=== PATIENT | female | born 1985 | race African-American/Black ===

== ENCOUNTER 2017-06-26 13:10 | Emergency (ER) | payer OTHER ==
[~2017-06-26 13:10] MED LIST: AZIT250T6 PO; DIPH1POW PO; DM/P295L2 PO; HYDR-971 PO; ONDA4TAB10 SL; TRAM50TA PO
[2017-06-26 13:13] VITALS: BP 123/72
== END 2017-06-26 13:25 | disposition left against medical advice (07) ==
LOC: ER 13:10
DX: O26.893 Other specified pregnancy related conditions, third trimester (principal); R10.30 Lower abdominal pain, unspecified; Z3A.34 34 weeks gestation of pregnancy; Z53.21 Procedure and treatment not carried out due to patient leaving prior to being seen by health care provider

== ENCOUNTER 2020-01-24 18:14 | Emergency (ER) | payer OTHER ==
[~2020-01-24] VITALS: Ht 165.1 cm; Wt 110.3 kg
[~2020-01-24 18:14] MED LIST changes: +HYDR-3165 PO; -HYDR-971 PO
[2020-01-24 18:31] VITALS: BP 165/95
--- NOTE | 2020-01-24 19:05 | PHYS DOC ---
Past History Past Medical History: No Pertinent History Past Surgical History: Cholecystectomy, , Tubal ligation Smoking: Cigarettes Alcohol Use: Occasionally Drug Use: None Adult General Chief Complaint Chief Complaint: ABDOMINAL PAIN HPI HPI Patient is a 34-year-old female patient presenting to the ED today with mild intermittent left upper quadrant abdominal pain radiating to her flank region, symptoms began 3 days ago. Patient denies any fever. Denies any urgency, frequency or dysuria. Denies any chance she is . She states her tubes are tied. Denies anything specifically exacerbating or relieving her pain. Review of Systems Review of Systems Constitutional: Denies fever or chills [] Eyes: Denies change in visual acuity, redness, or eye pain [] HENT: Denies nasal congestion or sore throat [] Respiratory: Denies cough or shortness of breath [] Cardiovascular: No additional information not addressed in HPI [] GI: Reports left upper quadrant abdominal pain, denies nausea, vomiting, bloody stools or diarrhea [] : Denies dysuria or hematuria [] Musculoskeletal: Denies back pain or joint pain [] Integument: Denies rash or skin lesions [] Neurologic: Denies headache, focal weakness or sensory changes [] All other systems were reviewed and found to be within normal limits, except as documented in this note. Allergies Allergies Allergies Coded Allergies Type Severity Reaction Last Updated Verified No Known Drug Allergies 08/07/13 No Physical Exam Physical Exam Constitutional: Well developed, well nourished, no acute distress, non-toxic appearance. [] HENT: Normocephalic, atraumatic, bilateral external ears normal, oropharynx moist, no oral exudates, nose normal. [] Eyes: PERRLA, EOMI, conjunctiva normal, no discharge. [] Neck: Normal range of motion, no tenderness, supple, no stridor. [] Cardiovascular:Heart rate regular rhythm, no murmur [] Lungs & Thorax: Bilateral breath sounds clear to auscultation [] Abdomen: Bowel sounds normal, soft, slight LUQ tenderness no RUQ or LLQ tenderness, no masses, no pulsatile masses. [] Skin: Warm, dry, no erythema, no rash. [] Back: No tenderness, no CVA tenderness. [] Extremities: No tenderness, no cyanosis, no clubbing, ROM intact, no edema. [] Neurologic: Alert and oriented X 3, normal motor function, normal sensory function, no focal deficits noted. [] Psychologic: Affect normal, judgement normal, mood normal. [] Current Patient Data Vital Signs Vital Signs Date Time Temp Pulse Resp B/P (MAP) Pulse Ox O2 Delivery O2 Flow Rate FiO2 01/24/20 18:31 97.8 98 16 165/95 (118) 100 Room Air EKG EKG [] Radiology/Procedures Radiology/Procedures []PROCEDURE: CT ABDOMEN PELVIS WO CONTRAST CT scan of the abdomen and pelvis with contrast 01/24/2020 CLINICAL HISTORY: Left flank pain. TECHNIQUE: Unenhanced, contiguous, 3 mm axial sections were obtained through the abdomen and pelvis. One or more of the following individualized dose reduction techniques were utilized for this study: 1. Automated exposure control. 2. Adjustment of the mA and/or kV according to patient size. 3. Use of iterative reconstruction technique. FINDINGS: Comparison study is dated 01/15/2015. Images through the lung bases demonstrate minimal dependent subsegmental atelectasis bilaterally. The liver, spleen, pancreas, adrenal glands and left kidney are within normal limits. 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 No focal abnormality of the right kidney is seen. The abdominal aorta tapers normally. Surgical clips are seen within the gallbladder fossa consistent with a cholecystectomy. No free fluid or free air is . The appendix is well-visualized and is within normal limits. There is no evidence of bowel obstruction. Scattered diverticula are seen involving the colon. Diffuse wall thickening of the proximal descending colon is seen. Increased density is seen within the adjacent fat. These findings are consistent with diverticulitis. No abnormal fluid collection is seen to suggest evidence of an abscess. Images through the pelvis demonstrate the urinary bladder to be contracted. No free fluid is seen. Minimal S-shaped curvature of the thoracolumbar spine is noted. IMPRESSION: Findings are seen consistent with diverticulitis involving the proximal descending colon. No abscess is seen. Electronically signed by: Arpit Viera MD (01/24/2020 7:37 PM) [id number] DICTATED AND SIGNED BY: ARPIT VIERA MD DATE: 01/24/20 1937 CC: DAIANA BERRIOS APRN; PCP,UNKNOWN ~ Heart Score Risk Factors: Risk Factors: DM, Current or recent (<one month) smoker, HTN, HLP, family histo ry of CAD, obesity. Risk Scores: Risk Factors: DM, Current or recent (<one month) smoker, HTN, HLP, family history of CAD, obesity. Course & Med Decision Making Course & Med Decision Making Pertinent Labs and Imaging studies reviewed. (See chart for details) This is a 34-year-old female patient presenting to the ED today with left upper quadrant abdominal pain radiating to her flank region on the left side. Patient is afebrile, CBC with a WBC of 12.0, CMP with no acute findings, UA negative for any acute findings. CT of the abdomen and pelvic was noted for diverticulitis. Patient was advised admission, she declined. Was discharged on Flagyl and Cipro. Follow-up with GI or PCP. Provided return precautions. Dragon Disclaimer Dragon Disclaimer This electronic medical record was generated, in whole or in part, using a voice recognition dictation system. Departure Departure: Impression: Primary Impression: Diverticulitis Disposition: [place] HOME SELF CARE/HOMELESS Condition: STABLE Referrals: PCP,UNKNOWN (PCP) ELIANA TAYLOR MD follow up in 1-2 weeks Patient Instructions: Diverticulitis, [id number] Additional Instructions: You were evaluated today and noted to have diverticulitis. Take the prescribed antibiotics until completed. Follow-up with the provided produce weigher or your own primary care doctor in 1 week. Come back to the ED at any point symptoms worsen Scripts Hydrocodone Bit/Acetaminophen (HYDROCODONE-APAP 5-325 ) 1 Each Tablet 1 TAB PO PRN Q6HRS PRN for PAIN, #12 TAB 0 Refills Prov: DAIANA BERRIOS APRN 01/24/20 Ondansetron (ONDANSETRON ODT) 4 Mg Tab.rapdis 1 TAB PO PRN Q6-8HRS, #16 TAB Prov: DAIANA BERRIOS [employer] 01/24/20 Metronidazole (FLAGYL) 500 Mg Tablet 1 TAB PO TID, #30 TAB Prov: DAIANA BERRIOS APRN 01/24/20 Ciprofloxacin Hcl (CIPRO) 500 Mg Tablet 1 TAB PO BID for 10 Days, #20 TAB 0 Refills Prov: DAIANA BERRIOS [employer] 01/24/20 DAIANA BERRIOS APRN Jan 24, 2020 19:05
--- NOTE | 2020-01-24 19:39 | RAD ---
CT scan of the abdomen and pelvis with contrast 01/24/2020 CLINICAL HISTORY: Left flank pain. TECHNIQUE: Unenhanced, contiguous, 3 mm axial sections were obtained through the abdomen and pelvis. One or more of the following individualized dose reduction techniques were utilized for this study: 1. Automated exposure control. 2. Adjustment of the mA and/or kV according to patient size. 3. Use of iterative reconstruction technique. FINDINGS: Comparison study is dated 01/15/2015. Images through the lung bases demonstrate minimal dependent subsegmental atelectasis bilaterally. The liver, spleen, pancreas, adrenal glands and left kidney are within normal limits. 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 No focal abnormality of the right kidney is seen. The abdominal aorta tapers normally. Surgical clips are seen within the gallbladder fossa consistent with a cholecystectomy. No free fluid or free air is . The appendix is well-visualized and is within normal limits. There is no evidence of bowel obstruction. Scattered diverticula are seen involving the colon. Diffuse wall thickening of the proximal descending colon is seen. Increased density is seen within the adjacent fat. These findings are consistent with diverticulitis. No abnormal fluid collection is seen to suggest evidence of an abscess. Images through the pelvis demonstrate the urinary bladder to be contracted. No free fluid is seen. Minimal S-shaped curvature of the thoracolumbar spine is noted. IMPRESSION: Findings are seen consistent with diverticulitis involving the proximal descending colon. No abscess is seen. Electronically signed by: Arpit Ko MD (01/24/2020 7:37 PM) [id number]
[2020-01-24 19:52] LABS: BASO # 0.1 x10^3/uL (0.0-0.2); BASO % 1 % (0-3); EOS # 0.1 x10^3/uL (0.0-0.7); EOS % 1 % (0-3); HEMOGLOBIN 12.2 g/dL (12.0-15.5); LYMPH # 2.3 x10^3/uL (1.0-4.8); LYMPH % 20 % (24-48); MEAN CORPUSCULAR HEMOGLOBIN 27 pg (25-35); MEAN CORPUSCULAR HGB CONC 32 g/dL (31-37); MEAN CORPUSCULAR VOLUME 83 fL (79-100); MONO % 9 % (0-9); NEUT # 8.3 x10^3uL (1.8-7.7); NEUT % 70 % (31-73); PLATELET COUNT 236 x10^3/uL (140-400); RED BLOOD COUNT 4.57 x10^6/uL (3.50-5.40)
[2020-01-24 19:56] LABS: BARBITURATES NEG (NEG); BENZODIAZEPINES NEG (NEG); CANNABINOIDS NEG (NEG); COCAINE NEG (NEG); METHADONE NEG (NEG); OPIATES NEG (NEG); PHENCYCLIDINE NEG (NEG)
[2020-01-24 19:58] LABS: CALCIUM 8.9 mg/dL (8.5-10.1); CREATININE 0.8 mg/dL (0.6-1.0); GFR 100.6; POTASSIUM 3.9 mmol/L (3.5-5.1)
[2020-01-24 19:58] LABS: BACTERIA,URINE FEW /HPF (0-FEW); BILIRUBIN,URINE NEG (NEG); CLARITY,URINE CLEAR; COLOR,URINE STRAW; GLUCOSE,URINE NEG (NEG); NITRITE,URINE NEG (NEG); RBC,URINE RARE /HPF (0-2); UROBILINOGEN,URINE 0.2 mg/dL (0.2 mg/dL)
[2020-01-24 19:59] LABS: SQUAMOUS EPITHELIAL CELL,UR FEW /LPF
[2020-01-24 20:00] LABS: AMPHETAMINE/METHAMPHETAMINE NEG (NEG)
[2020-01-24 20:05] LABS: ALBUMIN 3.5 g/dL (3.4-5.0); ALBUMIN/GLOBULIN RATIO 0.9 (1.0-1.7); TOTAL BILIRUBIN 0.7 mg/dL (0.2-1.0); TOTAL PROTEIN 7.6 g/dL (6.4-8.2)
[2020-01-24] MEDS ORDERED: metroNIDAZOLE 500 MG TABLET PO ONE (20:30)
[2020-01-24] MEDS ORDERED: ONDA4TAB12 PO (20:33)
[2020-01-24] MEDS ORDERED: CIPR500T94 PO (20:33)
[2020-01-24] MEDS ORDERED: HYDR-2155 PO (20:33)
[2020-01-24] MEDS ORDERED: METR500T PO (20:33)
[2020-01-24] MEDS ORDERED: IV NORMAL SALINE 50ML 50 ML ONE (20:53)
[2020-01-24] MEDS ORDERED: cefTRIAXone SODIUM 1 GM VIAL ONE (20:53)
== END 2020-01-24 20:56 | disposition home or self-care (01) ==
LOC: ER 18:14
DX: K57.32 Diverticulitis of large intestine without perforation or abscess without bleeding (principal); F17.210 Nicotine dependence, cigarettes, uncomplicated; Z90.49 Acquired absence of other specified parts of digestive tract; Z98.51 Tubal ligation status; Z98.890 Other specified postprocedural states
CPT/HCPCS: 36415; 74176; 80053; 80307; 81001; 81025; 83690; 85025; 99284; G0480

== ENCOUNTER 2020-08-12 15:46 | Emergency (ER) | payer OTHER ==
[~2020-08-12] VITALS: Ht 165.1 cm; Wt 104.5 kg
[~2020-08-12 15:46] MED LIST changes: +CIPR500T94 PO; +HYDR-2155 PO; +METR500T PO; +ONDA4TAB12 PO
[2020-08-12] MEDS: LIDOCAINE 1%/EPI 1:100,000 10 ML VIAL. INJ ONE (17:10)
--- NOTE | 2020-08-12 17:11 | PHYS DOC ---
Past History Past Medical History: Anxiety, Other Additional Past Medical Histor: chronic knee pain, (DEBORAH CLEMENTS APRN) Past Surgical History: , Tubal ligation Additional Past Surgical Histo: L knee scope, (DEBORAH CLEMENTS APRN) Smoking: Cigarettes Alcohol Use: None Drug Use: None (DEBORAH CLEMENTS APRN) General Adult EDM: Chief Complaint: MULTIPLE COMPLAINTS HPI: HPI: Patient is a 35-year-old female who presents with abscess to right outer side of mons pubis. Patient states that she noticed abscess there last week but today felt like it got bigger and she was able to squeeze pus from the area. Patient denies history of abscesses. Patient reports tenderness to the area. Denies taking anything for pain prior to arrival. Patient is afebrile. Patient has history of anxiety. (DEBORAH CLEMENTS APRN) Review of Systems: Review of Systems: Constitutional: Denies fever or chills Eyes: Denies change in visual acuity HENT: Denies nasal congestion or sore throat Respiratory: Denies cough or shortness of breath Cardiovascular: Denies chest pain or edema GI: Denies abdominal pain, nausea, vomiting, bloody stools or diarrhea : Denies dysuria Musculoskeletal: Denies back pain or joint pain Integument: Abscess to right outer mons pubis area Neurologic: Denies headache, focal weakness or sensory changes Endocrine: Denies polyuria or polydipsia Lymphatic: Denies swollen glands Psychiatric: Denies depression or anxiety (DEBORAH CLEMENTS APRN) Allergies: Allergies: Allergies Coded Allergies Type Severity Reaction Last Updated Verified No Known Drug Allergies 08/07/13 No (DEBORAH CLEMENTS APRN) Physical Exam: PE: Constitutional: Well developed, well nourished, no acute distress, non-toxic appearance. [] HENT: Normocephalic, atraumatic, bilateral external ears normal, oropharynx moist, no oral exudates, nose normal. [] Eyes: PERRLA, EOMI, conjunctiva normal, no discharge. [] Neck: Normal range of motion, no tenderness, supple, no stridor. [] Cardiovascular:Heart rate regular rhythm, no murmur [] Lungs & Thorax: Bilateral breath sounds clear to auscultation [] Abdomen: Bowel sounds normal, soft, no tenderness, no masses, no pulsatile masses. [] Skin: Red, tender, swollen , wound to mons pubis Back: No tenderness, no CVA tenderness. [] Extremities: No tenderness, no cyanosis, no clubbing, ROM intact, no edema. [] Neurologic: Alert and oriented X 3, normal motor function, normal sensory function, no focal deficits noted. [] Psychologic: Affect normal, judgement normal, mood normal. [] (DEBORAH CLEMENTS APRN) Current Patient Data: Vital Signs: Vital Signs Date Time Temp Pulse Resp B/P (MAP) Pulse Ox O2 Delivery O2 Flow Rate FiO2 08/12/20 16:00 98.3 87 18 129/88 (102) 100 Room Air (DEBORAH CLEMENTS APRN) EKG: EKG: [] (DEBORAH CLEMENTS APRN) Radiology/Procedures: Radiology/Procedures: [] (DEBORAH CLEMENTS APRN) Heart Score: C/O Chest Pain: No Risk Factors: Risk Factors: DM, Current or recent (<one month) smoker, HTN, HLP, family history of CAD, obesity. Risk Scores: Score 0 - 3: 2.5% MACE over next 6 weeks - Discharge Home Score 4 - 6: 20.3% MACE over next 6 weeks - Admit for Clinical Observation Score 7 - 10: 72.7% MACE over next 6 weeks - Early Invasive Strategies (DEBORAH CLEMENTS APRN) Course & Med Decision Making: Course & Med Decision Making Pertinent Labs and Imaging studies reviewed. (See chart for details) Patient is a 35-year-old female who presents with abscess to right outer side of mons pubis. Patient reports some drainage from the area. Numbed the area with lidocaine and made incision to drain abscess. Small amount of drainage from abscess. Instructed patient to keep area clean and dry. Covered abscess with gauze. Patient given prescription for Bactrim twice daily, 5 days. Patient given 1 dose here in the emergency room.. Patient to follow-up with PCP or return to the emergency room if abscess does not improve. Patient is appreciative and okay with discharge plan (DEBORAH CLEMENTS APRN) Good Disclaimer: Dragyoshi Disclaimer: This electronic medical record was generated, in whole or in part, using a voice recognition dictation system. (DEBORAH CLEMENTS APRN) Departure Departure: Impression: Primary Impression: Abscess Disposition: 01 HOME / SELF CARE / HOMELESS Condition: STABLE Referrals: PCP,NO (PCP) Patient Instructions: Abscess, Care After Additional Instructions: You were seen in the emergency room for an abscess. An incision was made into the abscess and drained. I am placing you on an antibiotic to take for the next 5 days to help prevent infection. Please take the antibiotic as directed. I am giving you your first dose in the emergency room. Also take ibuprofen and Tylenol for discomfort. Please follow-up with your PCP if abscesses not improved within 24 to 48 hours. Or you can return to the emergency room with worsening symptoms or concerns. EMERGENCY DEPARTMENT GENERAL DISCHARGE INSTRUCTIONS Thank you for coming to [facility] (ED) today and trusting us with you care. We trust that you had a positivie experience in our Emergency Department. If you wish to speak to the department management, you may call the director at [phone]. YOUR FOLLOW UP INSTRUCTIONS ARE FOLLOWS: 1. Do you have a private Doctor? If you do not have a private doctor, please ask for a resource list of physicians or clinics that may be able to assist you with follow up care. 2. The Emergency Physician has interpreted your x-rays. The X-Ray specialist will also review them. If there is a change in the findings, you will be notified in 48 hours when at all possible. 3. A lab test or culture has been done, your results will be reviewed and you will be notified if you need a change in treatment. ADDITIONAL INSTRUCTIONS AND INFORMATION: 1. Your care today has been supervised by a physician who is specially trained in emergency care. Many problems require more than one evaluation for a complete diagnosis and treatment. We recommend that you schedule your follow up appointment as recommended to ensure complete treatment of you illness or injury. If you are unable to obtain follow up care and continue to have a problem, or if your condition worsens, we recommend that you return to the ED. 2. We are not able to safely determine your condition over the phone nor are we able to give sound medical advice over the phone. For these safety reasons, if you call for medical advice we will ask you to come to the ED for further evaluation. 3. If you have any questions regarding these discharge instructions please call the ED at [phone]. SAFETY INFORMATION: In the interest of safety, wellness, and injury prevention; we encourage you to wear your sealbelt, if you smoke; quite smoking, and we encourage family to use a protective helmet for bicycling and other sporting events that present an increased risk for head injury. IF YOUR SYMPTOMS WORSEN OR NEW SYMPTOMS DEVELOP, OR YOU HAVE CONCERNS ABOUT YOUR CONDITION; OR IF YOUR CONDITION WORSENS WHILE YOU ARE WAITING FOR YOUR FOLLOW UP APPOINTMENT; EITHER CONTACT YOUR PRIMARY CARE DOCTOR, THE PHYSICIAN WHOSE NAME AND NUMBER YOU WERE GIVEN, OR RETURN TO THE ED IMMEDIATELY. Scripts Sulfamethoxazole/Trimethoprim (BACTRIM DS TABLET) 1 Each Tablet 1 TAB PO BID for abscess for 5 Days, #9 TAB 0 Refills Prov: DEBORAH CLEMENTS APRN 08/12/20 Attending Signature Attending Signature I have participated in the care of this patient and I have reviewed and agree with all pertinent clinical information above including history, exam, and recommendations. (ANAND GUERRERO MD) DEBORAH CLEMENTS APRN August 12, 2020 17:11 ANAND GUERRERO MD Aug 13, 2020 20:18
[2020-08-12] MEDS ORDERED: IBUPROFEN 600 MG TABLET. PO ONE (18:05)
[2020-08-12] MEDS: IBUPROFEN 600 MG TABLET. PO ONE (18:06)
[2020-08-12] MEDS ORDERED: SULF1TAB24 PO (18:24)
[2020-08-12 18:30] VITALS: BP 126/81
[2020-08-12] MEDS ORDERED: SMZ/TMP 800/160MG TABLET. PO ONE (18:32)
[2020-08-12] MEDS: SMZ/TMP 800/160MG TABLET. PO ONE (18:33)
== END 2020-08-12 18:34 | disposition home or self-care (01) ==
LOC: ER 15:46
DX: L02.215 Cutaneous abscess of perineum (principal); F41.9 Anxiety disorder, unspecified; F17.210 Nicotine dependence, cigarettes, uncomplicated; Z98.51 Tubal ligation status; Z98.890 Other specified postprocedural states
CPT/HCPCS: 56405; 99284